=== PATIENT | female | born 1975 | race Caucasian/White ===

== ENCOUNTER → 2018-11-16 | Outpatient (CLI) | payer OTHER ==
[2014-05-27 15:00] VITALS: BP 141/70
--- NOTE | 2018-11-16 18:02 | KCIC ---
Right thumb 3 views. HISTORY: Right thumb pain, M 79.644 3 views were taken of the right thumb. There is no fracture or acute osseous abnormality. IMPRESSION: 1. Negative right thumb. Electronically signed by: Osmel Quinn MD (11/16/2018 5:57 PM) [facility]
== END | disposition home or self-care (01) ==
LOC: KCIC 12:19
PROVIDERS: ATTEND Nurse Practitioner Family
DX: M79.644 Pain in right finger(s) (principal)
CPT/HCPCS: 73140